=== PATIENT | male | born 1995 | race Two or more races ===

== ENCOUNTER 2019-01-04 21:57 | Emergency (ER) | payer SELFPAY ==
[~2019-01-04] VITALS: Ht 165.1 cm; Wt 72.6 kg
[2019-01-04 21:59] VITALS: BP 139/83
--- NOTE | 2019-01-04 21:59 | NUR ---
ED Nurse Note: Walk-in patient presents with complaints of rash on finger, suspects insect bite x 1 day.
--- NOTE | 2019-01-04 22:17 | Emergency Room Report ---
History of Present Illness General Chief Complaint: Skin Rash/Abscess Source: Patient Present Illness HPI Patient presents with complaints that he feels he was possibly bit by a spider or insect left index finger Reports that he felt some swelling also felt involvement of the left Thumb Denies any chest pain or shortness of breath denies any vomiting denies any back or flank pain denies any dysuria frequency Denies any other trauma patient reports that while he was driving here he had to take 2 Deep inspirations and does feel improved after that Denies any cramping of the hand patient is right-hand dominant Allergies: Coded Allergies: No Known Allergies (Unverified , 01/04/19) Patient History Past Medical History: see triage record Pertinent Family History: none Reviewed Nursing Documentation: PMH: Agreed; PSxH: Agreed Nursing Documentation-PMH Past Medical History: No Stated History Review of Systems All Other Systems: negative except mentioned in HPI Physical Exam Vital Signs Date Time Temp Pulse Resp B/P (MAP) Pulse Ox O2 Delivery O2 Flow Rate FiO2 01/04/19 21:59 98.4 74 18 139/83 (101) 97 Room Air Sp02 EP Interpretation: reviewed, normal General Appearance: well appearing, no apparent distress Head: normocephalic, atraumatic Eyes: bilateral eye PERRL, bilateral eye EOMI ENT: hearing grossly normal, normal pharynx Neck: supple Respiratory: lungs clear, no respiratory distress, no retraction Cardiovascular #1: regular rate, rhythm Gastrointestinal: non tender, soft Musculoskeletal: other - Subjectively patient feels some minimal swelling to the left index finger clinically I cannot appreciate any obvious changes, no obvious areas of blister formation, thumb on palpation is also normal patient has appropriate flexion extension of all digits Neurologic: alert, oriented x3, responsive Psychiatric: normal inspection Skin: no rash, palpation normal Lymphatic: no adenopathy Medical Decision Making Diagnostic Impression: Primary Impression: Rash and other nonspecific skin eruption Additional Impression: insect bite ER Course Patient has sensation of minimal swelling and possible insect bite of the finger at this time clinical exam is benign and appropriate I do not appreciate any obvious systemic pathology patient is stable for close outpatient follow-up Last Vital Signs Date Time Temp Pulse Resp B/P (MAP) Pulse Ox O2 Delivery O2 Flow Rate FiO2 01/04/19 21:59 98.4 74 18 139/83 (101) 97 Room Air Status: unchanged Disposition: HOME, SELF-CARE Condition: Stable Referrals: [facility] Patient Instructions: Insect Bite, [id number] Additional Instructions: Patient is provided with the discharge instructions notified to follow up with primary doctor in the next 2-3 days otherwise return to the er with any worsening symptoms. Please note that this report is being documented using DRAGON technology. This can lead to erroneous entry secondary to incorrect interpretation by the dictating instrument. Parag Choi DO Jan 04, 2019 22:17
[2019-01-04 22:24] VITALS: BP 139/83
--- NOTE | 2019-01-04 22:24 | NUR ---
ED Nurse Note: Patient discharged in stable condition, verbalized understanding of discharge instructions and departed with all belongings.
== END 2019-01-04 22:40 | disposition home or self-care (01) ==
LOC: EMR 22:40
DX: R21 Rash and other nonspecific skin eruption (principal); S60.461A Insect bite (nonvenomous) of left index finger, initial encounter; W57.XXXA Bitten or stung by nonvenomous insect and other nonvenomous arthropods, initial encounter; Y92.9 Unspecified place or not applicable
CPT/HCPCS: 99281